=== PATIENT | male | born 1980 | race Caucasian/White ===

== ENCOUNTER 2018-04-04 03:44 | Emergency (ER) | payer SELFPAY ==
[~2018-04-04] VITALS: Ht 154.9 cm; Wt 61.6 kg
[2018-04-04 03:49] VITALS: Ht 154.9 cm; Wt 61.6 kg
[2018-04-04] MEDS ORDERED: ONDANSETRON (ODT) 4 MG TAB ODT STA (04:53)
--- NOTE | 2018-04-04 04:53 | ERD ---
ER Documentation Chief Complaint Chief Complaint UPPER ABD PAIN X'S 1 DAY HPI This is a 38-year-old male who presents emergency department with complaints of epigastric pain, after eating at [employer]. Pain has resolved upon arrival here in emergency department. Denies headache, head injury, loss of consciousness, dizziness, neck pain, neck stiffness, throat pain, difficulty swallowing, difficulty breathing lying flat, shoulder pain, chest pain, back pain, nausea, vomiting, constipation, diarrhea, urinary symptoms, loss of bowel and bladder control, trauma, injury, falls, difficulty walking due to pain, numbness or tingling sensation, calf pain, recent travel, recent major surgery in the last 3 weeks, calf pain, recent long travel, recent exposure to any illness, recent antibiotic use in the last 3 months, fever, chills, seizures. Past medical history: Denies. Denies family history of gallstones. Surgical history: Denies. Social: Denies smoking, use of alcoholic beverages, use of illegal drugs. ROS All systems reviewed and are negative except as per history of present illness. Medications Home Meds Active Scripts Acetaminophen* (Tylophen*) 500 Mg Capsule, 1 CAP PO Q6H PRN for PAIN AND OR ELEVATED TEMP, #20 CAP Prov:PASILABAN,RUSSELAR F 04/04/18 Ondansetron Hcl* (Zofran*) 4 Mg Tablet, 4 MG PO Q8H PRN for NAUSEA AND/OR VOMITING, #30 TAB Prov:PASILABAN,KLAR F 04/04/18 Famotidine* (Pepcid*) 20 Mg Tablet, 40 MG PO DAILY for 30 Days, TAB Prov:PASILABAN,RUSSELAR F 04/04/18 Allergies Allergies: Coded Allergies: No Known Allergy (Unverified , 04/04/18) PMhx/Soc History of Surgery: Yes (brain tumor removal 2005) Anesthesia Reaction: No Hx Neurological Disorder: No Hx Respiratory Disorders: No Hx Cardiac Disorders: No Hx Psychiatric Problems: No Hx Miscellaneous Medical Probl: No Hx Alcohol Use: Yes (rarely) Hx Substance Use: No Hx Tobacco Use: Yes (quit years ago) Smoking Status: Former smoker Physical Exam Vitals Vital Signs Date Temp Pulse Resp B/P (MAP) Pulse Ox O2 O2 Flow FiO2 Time Delivery Rate 04/04/18 98.4 90 19 133/86 98 Room Air 05:45 (102) 04/04/18 97.6 70 18 146/91 99 03:49 (109) Physical Exam Const: No acute distress Head: Atraumatic Eyes: Normal Conjunctiva ENT: Normal External Ears, Nose and Mouth. Neck: Full range of motion. No meningismus. Resp: Clear to auscultation bilaterally Cardio: Regular rate and rhythm, no murmurs Abd: Soft, non tender, non distended. Normal bowel sounds. Negative Kaba sign. Negative [place] sign (heel jar test). Negative psoas sign. Negative Rovsing sign. No CVA tenderness. Able to jump 10 times without developing abdominal pain. Skin: No petechiae or rashes. Skin appears normal for ethnicity. No skin tenting. No signs of severe dehydration. Back: No midline or flank tenderness Ext: No cyanosis, or edema Neur: Awake and alert. No neurological deficits. Psych: Normal Mood and Affect Results 24 hrs Current Medications Medications Dose Sig/Maurice Start Time Status Last (Trade) Ordered Route PRN Stop Time Admin Dose Reason Admin Ondansetron 4 mg ONCE STAT 04/04/18 DC 04/04/18 HCl (Zofran ODT 04:53 05:18 Odt) 04/04/18 04:55 40 ml ONCE ONCE 04/04/18 DC 04/04/18 Miscellaneous PO 05:00 05:18 Medication 04/04/18 05:01 (Gi Cocktail (2)) Famotidine 40 mg ONCE ONCE 04/04/18 DC 04/04/18 (Pepcid) PO 05:30 05:18 04/04/18 05:31 Procedures/MDM I offered diagnostic tests including ultrasound, blood works patient strongly refused. Stated that he does not want to wait much longer. Diagnostic tests: Clinical exam. Treatment: Zofran. GI cocktail. Re-evaluation: Denies chest pain, abdominal pain. Negative Kaba sign. Negative Yves sign (heel jar test). Negative psoas sign. Negative Rovsing sign. Able to jump 10 times without developing abdominal pain. Differential diagnosis I have low suspicion for pancreatitis, cholecystitis, diverticulitis, appendicitis, diverticulitis with abscess, bowel obstruction, mesenteric ischemia, pyelonephritis, nephrolithiasis, obstructing kidney stones, septic stone. Final diagnosis: Food poisoning. Gastritis. Prescription: Zofran. Pepcid. Tylenol. Follow-up with PCP in the next 24-48 hours. Come back here in the emergency department for any new symptoms or any worsening symptoms. All questions and concerns were answered. Patient and family members verbalized understanding and agreed with plan of care. Hemodynamically stable on discharge. Departure Diagnosis: Primary Impression: Food poisoning Condition: Stable Additional Instructions: Follow-up with PCP in the next 24-48 hours. Come back here in the emergency department for any new symptoms or any worsening symptoms. JOAQUIN EVANS Apr 04, 2018 04:53
[2018-04-04] MEDS ORDERED: LIDOCAINE/MYLANTA 40 ML BTL PO ONE (05:00)
[2018-04-04] MEDS ORDERED: ONDA4TAB8 PO (05:13)
[2018-04-04] MEDS ORDERED: ACET500C5 PO (05:13)
[2018-04-04] MEDS ORDERED: FAMO-96 PO (05:13)
[2018-04-04] MEDS ORDERED: FAMOTIDINE 20 MG TAB PO ONE (05:30)
[2018-04-04 05:45] VITALS: BP 133/86; PULSE 90; RESP 19
== END 2018-04-04 06:05 | disposition home or self-care (01) ==
LOC: FTE 03:44
DX: T62.91XA Toxic effect of unspecified noxious substance eaten as food, accidental (unintentional), initial encounter (principal); K29.70 Gastritis, unspecified, without bleeding; Z85.841 Personal history of malignant neoplasm of brain; Z87.891 Personal history of nicotine dependence
CPT/HCPCS: 99283